=== PATIENT | male | born 1995 | race African-American/Black ===

== ENCOUNTER 2023-09-21 03:46 | Emergency (ER) | payer OTHER ==
--- NOTE | 2023-09-21 03:53 | ED Physician Documentation ---
PD HPI MHE - Stated complaint Stated Complaint: SI/ETOH - History obtained from History obtained from: Patient, EMS, Police - Additional information Additional information: 28-year-old male presents for alcohol intoxication and repeated suicidal statements. Patient reportedly just received a large bill from the [employer] and has had marital issues. He repeatedly called 911 and hung up and so law enforcement went to his apartment. They state that they found the apartment torn up and the patient was repeatedly saying that he wanted to , but did not have any plans to kill himself. Based on patient's repeated suicidal statements they placed him under an involuntary status and EMS transported the patient for further evaluation. Patient does make passive suicidal statements, denies formal plan. Drink unknown quantity of alcohol tonight. Patient told EMS that he drink wine, he told law enforcement he drank vodka, unknown quantity. PD PAST MEDICAL HISTORY - Present Medications Home Medications: Ambulatory Orders Medication Instructions Recorded Confirmed No Known Home Medications 09/21/23 09/21/23 - Allergies Allergies/Adverse Reactions: Allergies Allergy/AdvReac Type Severity Reaction Status Date / Time No Known Drug Allergies Allergy Verified 09/21/23 03:57 Results - Vitals Vitals: Vital Signs - 24 hr 09/21/23 03:50 Temperature 36.1 C L Heart Rate 103 H Respiratory 16 Rate Blood Pressure 114/81 H O2 Saturation 97 Oxygen O2 Source Room air - Labs Labs: Laboratory Tests 09/21/23 09/21/23 09/21/23 04:16 04:16 04:16 WBC 4.8 RBC 5.27 Hgb 14.8 Hct 46.0 MCV 87.3 MCH 28.1 MCHC 32.2 RDW 12.2 Plt Count 270 MPV 9.1 Neut # (Auto) 1.4 L Lymph # (Auto) 2.9 Stephenson # (Auto) 0.4 Eos # (Auto) 0.0 Baso # (Auto) 0.0 Absolute Nucleated RBC 0.00 Nucleated RBC % 0.0 Sodium 143 Potassium 3.7 Chloride 107 Carbon Dioxide 26 Anion Gap 10.0 BUN 13 Creatinine 1.3 Estimated GFR (MDRD) 66 L Glucose 107 H Calcium 9.4 Total Bilirubin 0.3 AST 31 ALT 53 Alkaline Phosphatase 50 Total Protein 7.6 Albumin 4.8 Globulin 2.8 Albumin/Globulin Ratio 1.7 Salicylates < 1.5 Urine Opiates Screen Ur Buprenorphine Scrn Ur Oxycodone Screen Urine Methadone Screen Acetaminophen < 0.1 Ur Barbiturates Screen Ur Tricyclics Screen Ur Phencyclidine Scrn Ur Amphetamine Screen U Methamphetamines Scrn U Benzodiazepines Scrn Urine Cocaine Screen U Cannabinoids Screen Ur Drug Screen Comment Ethyl Alcohol 237.7 SARS-CoV-2 (PCR) NOT DETECTED 09/21/23 04:19 WBC RBC Hgb Hct MCV MCH MCHC RDW Plt Count MPV Neut # (Auto) Lymph # (Auto) Stephenson # (Auto) Eos # (Auto) Baso # (Auto) Absolute Nucleated RBC Nucleated RBC % Sodium Potassium Chloride Carbon Dioxide Anion Gap BUN Creatinine Estimated GFR (MDRD) Glucose Calcium Total Bilirubin AST ALT Alkaline Phosphatase Total Protein Albumin Globulin Albumin/Globulin Ratio Salicylates Urine Opiates Screen NEGATIVE Ur Buprenorphine Scrn NEGATIVE Ur Oxycodone Screen NEGATIVE Urine Methadone Screen NEGATIVE Acetaminophen Ur Barbiturates Screen NEGATIVE Ur Tricyclics Screen NEGATIVE Ur Phencyclidine Scrn NEGATIVE Ur Amphetamine Screen NEGATIVE U Methamphetamines Scrn NEGATIVE U Benzodiazepines Scrn NEGATIVE Urine Cocaine Screen NEGATIVE U Cannabinoids Screen NEGATIVE Ur Drug Screen Comment CUTOFF CONC BELOW: Ethyl Alcohol SARS-CoV-2 (PCR) PD Medical Decision Making - ED course Complexity details: reviewed results, re-evaluated patient, considered diff erential, d/w patient ED course: Patient repeatedly telling law enforcement that he wanted to , denying formal plan. Patient is clearly intoxicated, cooperative with staff. Will order medical clearance labs as well as thiamine and folic acid. Patient declined thiamine and folic acid tablets. Laboratory work reviewed, alcohol level elevated, expected. Confirmed that patient is currently involuntary per law enforcement. [facility] dispatch. Per nursing staff DCR states the patient is currently too intoxicated to adequately assess. They requested social work evaluate the patient later this morning. Social work consult placed. Repeat alcohol level ordered for later this morning. Care of patient to be signed out to morning doctor. Departure - Departure Clinical Impression: Alcoholic intoxication Qualifiers: Complication of substance-induced condition: uncomplicated Qualified Code(s): F10.920 - Alcohol use, unspecified with intoxication, uncomplicated Condition: Stable
[2023-09-21 04:22] LABS: BASOPHILS % (AUTO) 0.6 %; EOSINOPHILS % (AUTO) 0.6 %; HGB - HEMOGLOBIN 14.8 g/dL (14.0-18.0); LYMPHOCYTES # (AUTO) 2.9 10^3/uL (1.5-3.5); LYMPHOCYTES % (AUTO) 61.3 %; MEAN CORPUSCULAR HEMOGLOBIN 28.1 pg (27.0-31.0); MEAN CORPUSCULAR HGB CONC 32.2 g/dL (32.0-36.0); MEAN CORPUSCULAR VOLUME 87.3 fL (80.0-94.0); MEAN PLATELET VOLUME 9.1 fL (7.4-11.4); MONOCYTES # (AUTO) 0.4 10^3/uL (0.0-1.0); MONOCYTES % (AUTO) 7.6 %; NEUTROPHILS # (AUTO) 1.4 10^3/uL (1.5-6.6); NEUTROPHILS % (AUTO) 29.7 %; PLT - PLATELET COUNT 270 10^3/uL (130-450); RED BLOOD COUNT 5.27 10^6/uL (4.70-6.10); RED CELL DISTRIBUTION WIDTH 12.2 % (12.0-15.0); WHITE BLOOD COUNT 4.8 x10^3/uL (4.8-10.8)
[2023-09-21] MEDS: THIAMINE 100 MG TABLET PO STA ×2 (04:33→04:39)
[2023-09-21] MEDS: FOLIC ACID 1 MG TABLET PO SCH ×2 (04:33→04:39)
[2023-09-21 04:41] LABS: AMPHETAMINE SCREEN,URINE NEGATIVE (NEGATIVE); BARBITURATE SCREEN,UR NEGATIVE (NEGATIVE); BENZODIAZEPINES SCREEN, URINE NEGATIVE (NEGATIVE); BUPRENORPHINE SCREEN, URINE NEGATIVE (NEGATIVE); COCAINE SCREEN URINE NEGATIVE (NEGATIVE); METHADONE SCREEN, URINE NEGATIVE (NEGATIVE); METHAMPHETAMINES SCREEN, URINE NEGATIVE (NEGATIVE); OPIATE SCREEN, URINE NEGATIVE (NEGATIVE); OXYCODONE SCREEN, URINE NEGATIVE (NEGATIVE); THC CANNABINOID SCREEN, URINE NEGATIVE (NEGATIVE); TRICYCLIC ANTIDEPRESSANT,URINE NEGATIVE (NEGATIVE)
[2023-09-21 04:48] LABS: ALBUMIN 4.8 g/dL (3.2-5.5); ALBUMIN/GLOBULIN RATIO 1.7 (1.0-2.2); ALKALINE PHOSPHATASE 50 IU/L (42-121); ALT ALANINE AMINOTRANSFERASE 53 IU/L (10-60); AST ASPARTATE AMINOTRANSFERASE 31 IU/L (10-42); BILIRUBIN,TOTAL 0.3 mg/dL (0.2-1.0); BUN - BLOOD UREA NITROGEN 13 mg/dL (6-20); CALCIUM 9.4 mg/dL (8.5-10.3); CARBON DIOXIDE - CO2 26 mmol/L (21-32); CHLORIDE 107 mmol/L (101-111); CREATININE 1.3 mg/dL (0.6-1.3); ETOH - ETHANOL 237.7 mg/dL; GFR - MDRD 66 (>89); GLUCOSE 107 mg/dL (74-104); POTASSIUM 3.7 mmol/L (3.5-4.5); SODIUM 143 mmol/L (135-145); TOTAL PROTEIN 7.6 g/dL (6.4-8.9)
[2023-09-21 04:52] LABS: SALICYLATE < 1.5 mg/dL
[2023-09-21 04:53] LABS: ACETAMINOPHEN < 0.1 ug/mL
--- NOTE | 2023-09-21 17:16 | ED Physician Documentation ---
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 He consumed excessive alcohol and was on the telephone with his who lives in [facility] and she called 911. The patient arrived to the emergency department intoxicated and unable to be evaluated. 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 He does have a good story for loneliness and that he has a and children in [facility] that he has not seen for 7 years. He is since his money back to [facility]. He does not have enough money to travel back to [facility]. He indicates that he his about 7 years ago. He has been evaluated by social work for SI and they have cleared him for discharge. I do not find the patient to be suicidal. Counseling has been set up by social work and the fire control officer will be notified by the patient prior to discharge. 09/21/23 17:16 09/21/23 19:18 Impression: alcohol intoxication, stress reaction Plan: discharge to home after evaluation by social work with safety plan through command.
[2023-09-21 17:37] VITALS: BP 117/81; O2SAT 100
== END 2023-09-21 17:36 | disposition home or self-care (01) ==
LOC: ED 03:46
DX: F10.129 Alcohol abuse with intoxication, unspecified (principal); Y90.7 Blood alcohol level of 200-239 mg/100 ml; F43.9 Reaction to severe stress, unspecified
CPT/HCPCS: 36415; 80053; 80306; 80307; 80320; 80329; 85025; 87635; 99283

== ENCOUNTER 2023-12-23 13:59 | Outpatient (CLI) | payer OTHER ==
--- NOTE | 2023-12-23 14:51 | Sleep Patient Instructions ---
Sleep Center Visit Summary - Patient Visit Information Reason for Visit: Initial consult for evaluation of sleep disordered breathing and other sleep issues. - Patient Instructions Instructions Attached: Sleep Study Additional Instructions: You will be completing a sleep study, either an in-lab polysomnography (PSG) or home sleep study (HST). You will follow-up in the sleep care office after the sleep study is completed to hear the results and talk about therapy, if needed. You will be called by our office staff to schedule this appointment, but you may contact us with any questions. - Clinic Information Contact: [facility] [address] [place] [address] [email or web address] T: [phone]
--- NOTE | 2023-12-23 14:53 | SLEEP CARE CONSULTATION ---
Information from patient questionnaire entered by Ruba Sprague. I have reviewed and concur with the information entered by Ruba Sprague. This document represents the service I personally performed and the decisions made by me, Vidya Arvizu ARNP. History of Present Illness Service Date and Time: 12/23/2023 1359 Reason for Visit: New patient Chief Complaint: reports: Excessive daytime sleepiness, Frequent awakenings at night Date of Onset: 3YRS Usual bedtime: 9183-5298 Time it takes to fall asleep: 1-2 Snores at night: Yes Observed to quit breathing while asleep: Yes Sleeps alone due to snoring: No Number of times waking at night: 1 Reasons for waking at night: reports: Other (UNKNOWN) Toss, Turn, or Twitch while sleeping: Yes Recalls having dreams: Yes Usually gets out of bed at: 0545 Feels refreshed in the morning: No Morning headache: Yes (nearly every day, resolves in an hour) Sleepy or fatigued during the day: Yes Ever fallen asleep while driving: Yes (drowsy driving, no accidents) Takes day naps: No Dreams during day naps: No Prior sleep studies: No Additional HPI information: I had the pleasure of seeing ALEXI TURCIOS today regarding the possibility of him having a sleep disorder. His current complaints are excessive daytime sleepiness and frequent night awakenings. He says he was referred because he started going through a time where he had trouble falling asleep, staying asleep and having nightmares. He also says he is constantly tired through out the day. He says he has been told he snores loudly and can hear himself too when he is sleeping. He denies the snoring actually waking him up. He has been told that he stops breathing when sleeping. He does not feel rested in the mornings and wakes nearly every day with a headaches that resolve in about an hour. He says he will wake up and not be able to sleep but will lay in bed to try and rest. - Parasomnia Symptoms Ever been unable to move upon waking from sleep: Yes (mostly with nightmares; last one was about 2 months ago) Walks in sleep: No Talks in sleep: No Ever acted out dreams in sleep: Yes Ever felt weak in the knees when startled or emotional: Yes Bothered by creepy, crawly, restless sensations in legs: No Problems with memory or concentration: Yes (hard to retain information and stay focused) Subjective Initial [place] Sleepiness Scale score: 13 (11/17/23) Past Medical History Past Medical History: reports: Other (no significant medical history) Social History The patient's occupation is a AM. Patient is and lives in . Have you smoked in the past 12 months: No Alcohol use: Yes Alcohol amount and frequency: 3-4 beers on occasion Caffeine use: Yes Caffeine amount and frequency: DAILY M-F (none in last 7 weeks) Family History Family history of sleep disordered breathing: No Family Hx Sleep Apnea: Father: Snoring Allergies and Home Medications Known drug allergies: No Drug allergies reviewed: Yes Home medication list reviewed: Yes Allergy and home medication list: Allergies No Known Drug Allergies Allergy (Verified 12/21/23 10:54) Home Medications Medication Instructions Recorded Confirmed Last Taken Type No Known Home Medications 09/21/23 12/23/23 Unknown History Review of Systems Weight gain over past 5 years: 50 Cardiovascular: reports: palpitations. denies: high blood pressure Gastrointestinal: denies: heartburn Neurological: denies: headaches Psychiatric: denies: anxiety, depression Ear/Nose/Throat: reports: dry mouth/throat. denies: tonsillectomy, wisdom teeth removed Musculoskeletal: reports: joint pain, back pain Physical Exam Vital signs obtained and entered by: RUBA Garcia MA Blood Pressure: 111/74 (RIGHT ARM) Cuff size: regular Heart Rate: 70 O2 Saturation: 100 Height: 5 ft 8 in Weight: 224 lb 6.4 oz Body Mass Index: 34.1 BMI Classification: Obese Neck circumference: 17.5 Nostrils: patent to airflow Mouth and throat: narrow oropharynx Soft palate: long Hard palate: normal Uvula: long, edematous Uvula visualization: 50% Mallampati Class II Tongue: enlarged in size with teeth su on lateral edges Tonsils: 1+ Neck: normal w/o lymphadenopathy or thyromegaly Heart: regular rate and rhythm Lungs: clear bilaterally Impression and Plan 1. Suspected Obstructive Sleep Apnea-Hypopnea Syndrome, as suggested by a history of loud and irregular snoring, observed cessation of breath while asleep, morning headache, frequent awakening during the night, unrefreshed sleep, cognitive impairment, and excessive daytime sleepiness. Narrow oropharynx and obesity are common predisposing factors for obstructive sleep apnea-hypopnea syndrome. I recommend proceeding to polysomnography to confirm the diagnosis and to assess severity. If the patient has significant sleep disordered breathing, a manual CPAP titration study will also be performed to find the optimal treatment pressure. I informed the patient of what the sleep studies involve and after some discussion, obtained agreement to proceed. The pathophysiology of obstructive sleep apnea-hypopnea syndrome was discussed with the patient and health risks of cardiovascular and cerebrovascular disease if not treated. Risks of drowsy driving discussed in detail and patient advised to avoid long distance driving and to basting puller at the first sign of drowsiness. Patient agreed to plan. * Schedule polysomnography. * Avoid long distance driving or driving when feeling sleepy. * Avoid alcohol, sedative and muscle relaxant around bedtime. * Attempt to lose weight. * Review instructions provided by trained office staff on how to prepare for the sleep study. * Return for follow-up after sleep study completed. Counseling Topics: Weight loss health impact Plan: PSG/HST Visit Type: In Office Time Spent with Patient (minutes): 31 Provider Statement: I spent 100% of the Face to Face Visit with the patient with greater than 50% spent counseling the patient and coordination of care.
[2023-12-23 14:59] VITALS: BP 111/74; O2SAT 100
== END 2023-12-23 14:00 | disposition home or self-care (01) ==
LOC: SC 13:59
PROVIDERS: ATTEND Nurse Practitioner Family
DX: G47.10 Hypersomnia, unspecified (principal); R06.83 Snoring; R06.81 Apnea, not elsewhere classified; R41.89 Other symptoms and signs involving cognitive functions and awareness
CPT/HCPCS: 99203; 99212

== ENCOUNTER 2024-02-01 19:07 | Outpatient (CLI) | payer OTHER | END 2024-02-01 19:08 | disposition home or self-care (01) | LOC: SC 19:07 | PROVIDERS: ATTEND Nurse Practitioner Family | DX: R06.83 Snoring (principal); G47.8 Other sleep disorders; G47.10 Hypersomnia, unspecified; E66.9 Obesity, unspecified; Z68.34 Body mass index [BMI] 34.0-34.9, adult | CPT/HCPCS: 95810 ==

== ENCOUNTER 2024-02-18 08:57 | Outpatient (CLI) | payer OTHER ==
--- NOTE | 2024-02-18 09:22 | Sleep Patient Instructions ---
Sleep Center Visit Summary - Patient Visit Information Reason for Visit: Sleep study follow-up - Patient Instructions Instructions Attached: Snoring Tips Prevent Additional Instructions: Your sleep study today was negative for significant sleep disordered breathing. However, you did have elevated respiratory episodes when sleeping on your back. You should avoid sleeping on your back to control these respiratory episodes. You were found to have episodes of snoring. There are different ways to control snoring including weight loss, oral devices made by a dentist or surgical options through ENT specialist. You should not use oral devices that do not fit properly because they can affect your bite. You should also check insurance coverage of oral devices for snoring because they may not be cover well. You may obtain a referral to an ENT specialist through your primary provider. Follow-up as needed. - Clinic Information Contact: [facility] [address] [place] [address] [email or web address] T: [phone]
--- NOTE | 2024-02-18 09:27 | SLEEP CARE CONSULTATION ---
Information from patient questionnaire entered by Ruba Sprague. I have reviewed and concur with the information entered by Ruba Sprague. This document represents the service I personally performed and the decisions made by , Vidya Arvizu ARNP. History of Present Illness Service Date and Time: 02/18/2024 0857 Initial [place] Sleepiness Scale score: 13 (11/17/23) Current [place] Sleepiness Scale score: 8 (02/18/24) Additional HPI information: ALEXI TURCIOS returns for follow up and results of the recently performed polysomnography. The patient was informed of the following findings: No significant sleep disordered breathing with an average AHI of 3.6 and sanjay oxygen saturation of 89%. I explained the pathophysiology behind obstructive sleep apnea. Patient does not have sleep apnea and was advised how weight gain could increase the risk of developing sleep apnea in the future. I strongly encouraged the patient to lose weight. Patient does not have significant sleep disordered breathing but has elevated AHI in supine position so advised positional therapy. Methods to achieve positional management therapy were discussed; such as, positioning with pillows, wearing a T-shirt with tennis balls sewn into the back or commercially available products. Patient has light to moderate snoring. Snoring can be reduced by weight loss. Weight loss is best achieved with diet consult. Patient instructed to contact PCP for referral. Snoring can also be treated with an oral appliance from a dentist. Advised to check insurance coverage. In addition, an ENT evaluation can be do to see if other treatment is indicated. Patient does not drink alcohol. Patient was cautioned about risks of drowsy driving until sleepiness symptoms resolve. Patient denies drowsy driving. Sleep Study - Results Type of Sleep Study: Polysomnography (COMPLETED 02/01/24) Prior sleep studies: No Polysomnography/Home Sleep Study results: IMPRESSION: The quality of the study is good. The patient had normal sleep efficiency. The sleep architecture was relatively normal considering the first-night effect. Respiratory monitoring showed no significant sleep disordered breathing (AHI = 3.6) or hypoxia (sanjay oxygen saturation of 89%). The few respiratory events occurred almost exclusively during supine sleep (supine AHI = 7.1; non-supine = 0.28). Snore was infrequent and light to moderate in intensity. There was no significant periodic leg movement of sleep. Cardiac rhythm was normal sinus rhythm without significant arrhythmia. No abnormal behavior (parasomnia) observed during the night. Allergies and Home Medications Known drug allergies: No Drug allergies reviewed: Yes Home medication list reviewed: Yes (no changes) Allergy and home medication list: Allergies No Known Drug Allergies Allergy (Verified 02/16/24 11:16) Review of Systems Review of systems same as previous: Yes (NO CHANGE) Physical Exam Vital signs obtained and entered by: RUBA Garcia MA Blood Pressure: 117/79 (LEFT ARM) Cuff size: long Heart Rate: 73 O2 Saturation: 99 Height: 5 ft 8 in Weight: 233 lb Body Mass Index: 35.4 BMI Classification: Obese Impression and Plan 1. Snoring but no significant sleep disordered breathing. However, patient has elevated supine AHI at 7.1 and should avoid sleeping supine. Methods for avoidin g his back were discussed. Patient advised that often weight loss will reduce snoring as well as apnea risk. An oral appliance can also be used for snoring. This would require a dental consultation. Patient cautioned not to use other online appliances as can cause bite issues. A list of accredited dentists in area and one local dentist who makes oral appliances given. Patient is advised to check if insurance will cover. An ENT consult can also be helpful to determine if any other treatment is an option. 2. Obesity, unspecified. Currently patients BMI is 35.4. Weight loss can be done with reducing portion size, reducing refined foods and balancing content with vegetables, fruit and protein. A diet consultation can be helpful in achieving optimal weight loss goals. Obesity increases the risk of apnea, CPAP pressure requirements and overall health risks especially cardiovascular and diabetes. Thus patient is advised to lose weight. * Avoid sleeping supine * Attempt to lose weight * Avoid alcohol consumption near bedtime * The patient is cautioned about driving until sleepiness is completely resolved. * Return as needed for follow up. Counseling Topics: Sleeping position, Weight loss health impact Follow up with Sleep Care in: as needed Visit Type: In Office Time Spent with Patient (minutes): 23 Provider Statement: I spent 100% of the Face to Face Visit with the patient with greater than 50% spent counseling the patient and coordination of care.
[2024-02-18 09:29] VITALS: BP 117/79; O2SAT 99
== END 2024-02-18 08:58 | disposition home or self-care (01) ==
LOC: SC 08:57
PROVIDERS: ATTEND Nurse Practitioner Family
DX: R06.83 Snoring (principal); E66.9 Obesity, unspecified; Z68.35 Body mass index [BMI] 35.0-35.9, adult
CPT/HCPCS: 99212; 99213

== ENCOUNTER 2024-04-12 12:23 | Emergency (ER) | payer OTHER ==
--- NOTE | 2024-04-12 12:42 | ED Physician Documentation ---
PD HPI BACK PAIN - Stated complaint Stated Complaint: BILAT LEGS NUMB,TAILBONE PX - Chief complaint Chief Complaint: Back Pain - Additional information Additional information: Generally healthy 29-year-old [place] ramona here with low back pain. Patient states he has had chronic low back pain for a number of years he has had plain imaging which was unremarkable. He was concerned because the other day he did not have any acute injury due to lifting twisting bending etc. but had onset of right sided low back pain with radiation down his leg. I note the triage nurse says that both of his legs were numb he has never had bilateral numbness whatsoever. He occasionally had some paresthesia type pain shooting down the right leg. He has not had any numbness weakness in the lower extremities has not had any genital numbness saddle anesthesia or loss of bowel or bladder. No fevers chills no IV injection drug use Review of Systems Constitutional: denies: Fever, Chills Neurologic: denies: Focal weakness, Numbness PD PAST MEDICAL HISTORY - Past Medical History Past Medical History: Yes Musculoskeletal: Chronic back pain - Past Surgical History Past Surgical History: No - Present Medications Home Medications: Ambulatory Orders Medication Instructions Recorded Confirmed Amitriptyline [Elavil] See Rx Instructions .ROUTE .COMPLEX 02/18/24 02/18/24 Ibuprofen [Motrin] 600 mg PO Q6H PRN #30 tab 04/12/24 methocarbamoL [Robaxin] 1,500 mg PO Q6H #20 tablet 04/12/24 - Allergies Allergies/Adverse Reactions: Allergies Allergy/AdvReac Type Severity Reaction Status Date / Time No Known Drug Allergies Allergy Verified 04/12/24 12:29 - Social History Does the pt smoke?: No Smoking Status: Never smoker Does the pt drink ETOH?: Yes Does the pt have substance abuse?: No - Immunizations Immunizations are current?: Yes - POLST Patient has POLST: No PD ED PE NORMAL - Vitals Vital signs reviewed: Yes - General General: Alert and oriented X 3 - HEENT HEENT: Atraumatic - Neck Neck: Supple, no meningeal sign - Cardiac Cardiac: RRR, No murmur - Back Back: Other (No midline tenderness to palpation. Right paralumbar muscular tenderness. Straight leg raise on right elicits pain in the right flankno true radicular type symptoms. He can walk on his toes and heels. DTRs are intact bilaterally and symmetric. Dorsiflexion of toes normal.) Results - Vitals Vitals: Vital Signs - 24 hr 04/12/24 12:29 Temperature 36.8 C Heart Rate 74 Respiratory 16 Rate Blood Pressure 133/83 H O2 Saturation 100 Oxygen O2 Source Room air PD Medical Decision Making - ED course ED course: Patient is evaluated has intact neurologic exam at worst might have some sciatica type symptoms. No sign of cord compression no red flags for back pain to indicate emergent imaging. We discussed the low utility of plain films in his population without any history of trauma and he is understanding of this. He will take ibuprofen and Robaxin. Follow-up with andrew bland MD. Departure - Departure Disposition: 01 Home, Self Care Clinical Impression: Sciatica, Back pain Instructions: ED Sprain Strain Lumbar Prescriptions: Ibuprofen [Motrin] 600 mg PO Q6H PRN #30 tab PRN Reason: Pain methocarbamoL [Robaxin] 1,500 mg PO Q6H #20 tablet
[2024-04-12 12:44] VITALS: BP 133/83; O2SAT 100
== END 2024-04-12 12:56 | disposition home or self-care (01) ==
LOC: ED 12:23
DX: M54.40 Lumbago with sciatica, unspecified side (principal); Z79.899 Other long term (current) drug therapy
CPT/HCPCS: 99282; 99283

== ENCOUNTER 2024-05-23 07:18 | Emergency (ER) | payer OTHER ==
[2024-05-23 07:35] VITALS: O2SAT 99
--- NOTE | 2024-05-23 07:38 | ED Physician Documentation ---
History of Present Illness - Stated complaint Stated Complaint: DIZZINESS,HEAD PX,FAINTED - Chief complaint Chief Complaint: General - History obtained from History obtained from: Patient - Additonal information Additional information: Otherwise healthy 29-year-old gentleman presents with evaluation of syncope. He went to bed feeling normal last night. This morning he woke at 5 AM and had about a minute of dizziness on his way to the bathroom and passed out. He has a mild headache and may or may not of hit his head. He is not sure. No history of syncope or heart problems. Headache is only mild and does not need anything for it. No associated chest pain or trouble breathing. PD PAST MEDICAL HISTORY - Past Medical History Past Medical History: Yes Endocrine/Autoimmune: HyPOthyroidism Musculoskeletal: Chronic back pain - Past Surgical History Past Surgical History: No - Present Medications Home Medications: Ambulatory Orders Medication Instructions Recorded Confirmed Amitriptyline [Elavil] See Rx Instructions .ROUTE .COMPLEX 02/18/24 02/18/24 Ibuprofen [Motrin] 600 mg PO Q6H PRN #30 tab 04/12/24 methocarbamoL [Robaxin] 1,500 mg PO Q6H #20 tablet 04/12/24 Levothyroxine Sodium [Synthroid] 100 mcg PO DAILY 05/23/24 05/23/24 - Allergies Allergies/Adverse Reactions: Allergies Allergy/AdvReac Type Severity Reaction Status Date / Time No Known Drug Allergies Allergy Verified 05/23/24 07:26 - Social History Does the pt smoke?: No Smoking Status: Never smoker Does the pt drink ETOH?: Yes Does the pt have substance abuse?: No - Immunizations Immunizations are current?: Yes - POLST Patient has POLST: No PD ED PE NORMAL - Vitals Vital signs reviewed: Yes - General General: Alert and oriented X 3, No acute distress - HEENT HEENT: PERRL, EOMI - Neck Neck: Supple, no meningeal sign, No bony TTP - Cardiac Cardiac: RRR, No murmur - Respiratory Respiratory: No respiratory distress, Clear bilaterally - Abdomen Abdomen: Non tender - Back Back: No CVA TTP, No spinal TTP - Derm Derm: Normal color, Warm and dry - Neuro Neuro: Alert and oriented X 3, 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 Relevant findings are: Rate: Rate (enter#) (81) Rhythm: NSR [place]: Normal Intervals: Normal [place]. No: Prolonged QT, Wide QRS, RBBB QRS: Normal Ischemia: Normal ST segments Computer interpretation: Agree with computer - Labs Labs: Laboratory Tests 05/23/24 05/23/24 07:44 07:44 WBC 5.5 RBC 4.82 Hgb 13.6 L Hct 41.0 L MCV 85.1 MCH 28.2 MCHC 33.2 RDW 13.2 Plt Count 240 MPV 9.6 Neut # (Auto) 2.1 Lymph # (Auto) 2.8 [place] # (Auto) 0.5 Eos # (Auto) 0.1 Baso # (Auto) 0.0 Absolute Nucleated RBC 0.00 Nucleated RBC % 0.0 Sodium 138 Potassium 3.9 Chloride 104 Carbon Dioxide 28 Anion Gap 6.0 BUN 20 Creatinine 1.1 Estimated GFR (MDRD) 97 Glucose 100 Calcium 9.8 Total Bilirubin 0.5 AST 26 ALT 55 Alkaline Phosphatase 42 Total Protein 6.9 Albumin 4.2 Globulin 2.7 Albumin/Globulin Ratio 1.6 PD Medical Decision Making - ED course ED course: 29-year-old gentleman with syncope, mild headache afterwards not before. It is only mild so I do not think cranial imaging is necessary. Will check EKG and basic labs. CBC notable for mild anemia, CMP negative/normal. No sign of Brugada, long QT, or other worrisome EKG finding. The patient was counseled as to the diagnosis and need for follow-up. I counseled the patient with regard to signs and symptoms that would necessitate an urgent reevaluation in the emergency department. They understand they are welcome to return at any time if worse or if not improving as expected. This document was made in part using voice recognition software. While efforts are made to proofread this documents, sound alike and grammatical errors may occur. Departure - Departure Disposition: 01 Home, Self Care Clinical Impression: Syncope Qualifiers: Syncope type: unspecified Qualified Code(s): R55 - Syncope and collapse Condition: Good Record reviewed to determine appropriate education?: Yes Instructions: ED Fainting Unkn Cause Comments: You are seen today for an episode of passing out. No significant abnormalities were identified on blood work or EKG. You are very mildly anemic. 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 You should not do strenuous exercise until your flight surgeon clears you. Return for new or worsening symptoms. Forms: PCP List Discharge Date/Time: 05/23/24 08:24
[2024-05-23 07:52] LABS: BASOPHILS % (AUTO) 0.7 %; EOSINOPHILS # (AUTO) 0.1 10^3/uL (0.0-0.7); EOSINOPHILS % (AUTO) 1.3 %; HGB - HEMOGLOBIN 13.6 g/dL (14.0-18.0); LYMPHOCYTES # (AUTO) 2.8 10^3/uL (1.5-3.5); LYMPHOCYTES % (AUTO) 51.1 %; MEAN CORPUSCULAR HEMOGLOBIN 28.2 pg (27.0-31.0); MEAN CORPUSCULAR HGB CONC 33.2 g/dL (32.0-36.0); MEAN CORPUSCULAR VOLUME 85.1 fL (80.0-94.0); MEAN PLATELET VOLUME 9.6 fL (7.4-11.4); MONOCYTES # (AUTO) 0.5 10^3/uL (0.0-1.0); MONOCYTES % (AUTO) 9.4 %; NEUTROPHILS # (AUTO) 2.1 10^3/uL (1.5-6.6); NEUTROPHILS % (AUTO) 37.3 %; PLT - PLATELET COUNT 240 10^3/uL (130-450); RED BLOOD COUNT 4.82 10^6/uL (4.70-6.10); RED CELL DISTRIBUTION WIDTH 13.2 % (12.0-15.0); WHITE BLOOD COUNT 5.5 x10^3/uL (4.8-10.8)
[2024-05-23 08:11] LABS: ALBUMIN 4.2 g/dL (3.2-5.5); ALBUMIN/GLOBULIN RATIO 1.6 (1.0-2.2); BILIRUBIN,TOTAL 0.5 mg/dL (0.2-1.0); CALCIUM 9.8 mg/dL (8.5-10.3); CREATININE 1.1 mg/dL (0.6-1.3); POTASSIUM 3.9 mmol/L (3.5-4.5); TOTAL PROTEIN 6.9 g/dL (6.4-8.9)
[2024-05-23 08:30] VITALS: BP 138/94
== END 2024-05-23 08:24 | disposition home or self-care (01) ==
LOC: ED 07:18
DX: R55 Syncope and collapse (principal); D64.9 Anemia, unspecified
CPT/HCPCS: 36415; 80053; 85025; 93005; 99283; 99284